=== PATIENT | female | born 1965 | race Caucasian/White ===

== ENCOUNTER 2017-01-24 15:34 | Emergency (ER) | payer OTHER ==
[~2017-01-24] VITALS: Ht 167.6 cm; Wt 63.0 kg
[2017-01-24 15:52] VITALS: Ht 167.6 cm; Wt 63.0 kg
--- NOTE | 2017-01-24 17:12 | ERD ---
ER Documentation Chief Complaint Date/Time DATE: 01/24/17 TIME: 17:06 Chief Complaint LEFT 3RD DIGIT LACERATION HPI 51 yo female who is right-hand dominant comes in with left third digit laceration that occurred at 9:30 PM last night from a serrated butter knife. She was cutting piece of bread, and accidentally caused a laceration there. She reports that she woke up this morning and began to bleed again, each time she tries to do anything she states that there was a small gush of blood, the last time was about an hour ago. She denies any paresthesias, weakness. She does not recall her last tetanus shot. ROS All systems reviewed and are negative except as per history of present illness. Medications Home Meds Active Scripts Cephalexin* (Keflex*) 500 Mg Capsule, 500 MG PO QID for 5 Days, CAP Prov:SHWETHA FUENTES PA-C 01/24/17 Allergies Allergies: Coded Allergies: No Known Allergy (Unverified , 03/04/14) PMhx/Soc History of Surgery: No Anesthesia Reaction: No Hx Neurological Disorder: No Hx Respiratory Disorders: No Hx Cardiac Disorders: No Hx Psychiatric Problems: No Hx Miscellaneous Medical Probl: No Hx Alcohol Use: Yes Hx Substance Use: No Hx Tobacco Use: Yes Physical Exam Vitals Vital Signs Date Time Temp Pulse Resp B/P Pulse Ox O2 Delivery O2 Flow Rate FiO2 01/24/17 15:52 98.2 63 18 114/81 98 Physical Exam General: Well-developed, well-nourished. The patient appears in no acute distress. HEENT: Head is normocephalic, atraumatic. No scleral icterus. Neck: Supple. Nontender. Lungs: Clear to auscultation. Normal air movement. Heart: Regular rate and rhythm. S1 and S2 are normal. No murmurs, gallops, or rubs. Abdomen: Nondistended. Extremities: 2 centimeter linear laceration at the lateral aspect of the distal tip of the left third digit. There is no active bleeding, no foreign bodies.. She is able to flex and extend at the DIP, PIP and MCP joint. Capillary refill less than 2 seconds, sensation is distally intact Neurologic: Alert and oriented 3. No focal deficits. Normal speech and gait. Skin: Normal turgor. No rash or lesions. Results 24 hrs Current Medications Medications (Trade) Dose Ordered Sig/Jean-Paul Route PRN Reason Start Time Stop Time Status Last Admin Dose Admin Diphtheria/ Tetanus/Acell Pertussis (Adacel) 0.5 ml ONCE ONCE IM* 01/24/17 17:30 01/24/17 17:31 DC 01/24/17 17:15 Lidocaine (Xylocaine 1% (Mdv) 20 ml) 20 ml ONCE ONCE SC 01/24/17 17:30 01/24/17 17:31 DC Procedures/MDM ED course: Tdap was updated Laceration Repair by me: Patient was verbally consented Anesthesia: 1% lidocaine locally Location: Left third digit Tendon/Joint/Nerves: No injury Foreign body: None detected after copious irrigation and exploration Technique: Simple Interrupted Sutures 4 using 4-0 Ethilon Complexity: No subcutaneous sutures/mucosal repair/ edge excision Post Closure Length: 2 cm Patient's bleeding was easily controlled in the department and there is no indication of anemia. No evidence of compartment syndrome, neurologic injury, vascular injury, open joint, tendon laceration, or foreign body. Patient is appropriate for outpatient follow up. 48 hour wound check. Scar minimization instructions given. MDM: 51-year-old female presents with a laceration to her left index finger from a better night that occurred last night. Patient continues to have small oozing of bleeding after irrigation, therefore sutures were placed. She was instructed that there is minimal risk of infection, sutures are placed through achieve hemostasis. She is hemodynamically and neurovascularly intact after the procedure. She will be given a short course of Keflex. No signs of infection, tendon injury. Departure Diagnosis: Primary Impression: Laceration Condition: Good SHWETHA FUENTES PA-C Jan 24, 2017 17:12
[2017-01-24] MEDS ORDERED: DIPHTH/TET/ACEL PERTUSS (ADULT) 0.5 ML VIAL IM* ONE (17:30)
[2017-01-24] MEDS ORDERED: LIDOCAINE 1% (MDV) 20 ML INJ SC ONE (17:30)
[2017-01-24] MEDS ORDERED: CEPH-443 PO (17:40)
== END 2017-01-24 18:06 | disposition home or self-care (01) ==
LOC: FTE 15:34
DX: S61.213A Laceration without foreign body of left middle finger without damage to nail, initial encounter (principal); W26.0XXA Contact with knife, initial encounter; Y92.9 Unspecified place or not applicable; Z23 Encounter for immunization; Z87.891 Personal history of nicotine dependence
CPT/HCPCS: 12001; 90471; 90715; Z7502; Z7610

== ENCOUNTER 2017-02-23 17:06 | Emergency (ER) | payer SELFPAY ==
[~2017-02-23] VITALS: Ht 165.1 cm; Wt 61.0 kg
[~2017-02-23 17:06] MED LIST: CEPH-443 PO; DULO30CA47 PO; SERT50TA6 PO
[2017-02-23 17:12] VITALS: Ht 165.1 cm; Wt 61.0 kg
== END 2017-02-23 20:03 | disposition left against medical advice (07) ==
LOC: E/R 17:06
DX: Z53.21 Procedure and treatment not carried out due to patient leaving prior to being seen by health care provider (principal)

== ENCOUNTER 2017-02-27 20:43 | Emergency (ER) | payer OTHER ==
[~2017-02-27] VITALS: Ht 167.6 cm; Wt 62.0 kg
[2017-02-27 20:55] VITALS: Ht 167.6 cm; Wt 62.0 kg
--- NOTE | 2017-02-27 22:53 | ERD ---
ER Documentation Chief Complaint Date/Time DATE: 02/27/17 TIME: 22:52 Chief Complaint pt bib self to get med refill, unable to get into see PMD HPI 51-year-old female who presents emergency department for medication refill of her sertraline and duloxetine. No known drug allergies. Past medical history of anxiety and depression, spinal injury. Surgical history of spinal surgery. Medication: As described above. Social: Not working at this time. Occasional drinks alcoholic beverages. Occasionally smokes cigarettes. Denies use of illegal drugs. ROS All systems reviewed and are negative except as per history of present illness. Medications Home Meds Active Scripts Duloxetine Hcl* (Duloxetine Hcl*) 30 Mg Capsule.dr, 30 MG PO DAILY, #30 CAP Prov:YAYATOMASZ F 02/27/17 Sertraline Hcl* (Sertraline Hcl*) 50 Mg Tablet, 50 MG PO DAILY, #30 TAB Prov:TOMASZ JAVIER F 02/27/17 Duloxetine Hcl* (Duloxetine Hcl*) 30 Mg Capsule.dr, 30 MG PO DAILY, #14 CAP Prov:THEO CRUZ PA-C 02/01/17 Sertraline Hcl* (Sertraline Hcl*) 50 Mg Tablet, 50 MG PO DAILY, #14 TAB Prov:THEO CRUZ PA-C 02/01/17 Cephalexin* (Keflex*) 500 Mg Capsule, 500 MG PO QID for 5 Days, CAP Prov:SHWETHA FUENTES PA-C 01/24/17 Allergies Allergies: Coded Allergies: No Known Allergy (Unverified , 03/04/14) PMhx/Soc History of Surgery: Yes (spine sx) Anesthesia Reaction: No Hx Neurological Disorder: No Hx Respiratory Disorders: No Hx Cardiac Disorders: No Hx Psychiatric Problems: Yes (anxiety/depression ) Hx Miscellaneous Medical Probl: No Hx Alcohol Use: No Hx Substance Use: No Hx Tobacco Use: No Smoking Status: Never smoker Physical Exam Physical Exam Const: [] Head: Atraumatic Eyes: Normal Conjunctiva ENT: Normal External Ears, Nose and Mouth. Neck: Full range of motion..~ No meningismus. Resp: Clear to auscultation bilaterally Cardio: Regular rate and rhythm, no murmurs Abd: Soft, non tender, non distended. Normal bowel sounds Skin: No petechiae or rashes Back: No midline or flank tenderness Ext: No cyanosis, or edema Neur: Awake and alert Psych: Normal Mood and Affect. Denies auditory/visual hallucinations/ delusions. Not suicidal. Not homicidal. Has the capacity to decide for herself. Has good support system at home. Procedures/MDM 51-year-old female who presents emergency department for medication refill of her sertraline and duloxetine. No known drug allergies. Past medical history of anxiety and depression, spinal injury. Surgical history of spinal surgery. Medication: As described above. Social: Not working at this time. Occasional drinks alcoholic beverages. Occasionally smokes cigarettes. Denies use of illegal drugs. Physical examination is unremarkable. Denies auditory/visual hallucinations/ delusions. Not suicidal. Not homicidal. Has the capacity to decide for herself. Has good support system at home. Medical decision making: Patient was prescribed with sertraline and duloxetine. Patient was prescribed sertraline, duloxetine. Follow-up with primary care physician the next 24-48 hours. Come back here in the emergency department for any new symptoms or any worsening of symptoms. Patient questions and concerns were answered. Patient verbalized understanding and agreed with plan of care. Departure Diagnosis: Primary Impression: Encounter for medication refill Condition: Stable Additional Instructions: Follow-up with primary care physician the next 24-48 hours. Come back to emergency department for any new symptoms or any worsening symptoms. Patient questions and concerns were answered. Patient verbalized understanding and agreed with the plan of care. TOMASZ JAVIER Feb 27, 2017 22:53
[2017-02-27] MEDS ORDERED: SERT50TA6 PO (22:55)
[2017-02-27] MEDS ORDERED: DULO30CA47 PO (22:56)
== END 2017-02-27 23:30 | disposition home or self-care (01) ==
LOC: FTE 20:43
DX: Z76.0 Encounter for issue of repeat prescription (principal)
CPT/HCPCS: 99281

== ENCOUNTER 2018-05-05 12:15 | Emergency (ER) | END 2018-05-05 13:50 | disposition home or self-care (01) ==